=== PATIENT | female | born 1995 | race Caucasian/White ===

== ENCOUNTER 2017-07-10 00:20 | Emergency (ER) | payer SELFPAY ==
[~2017-07-10] VITALS: Ht 162.5 cm; Wt 120.2 kg
[2017-07-10] MEDS ORDERED: CYCLOBENZAPRINE5 M3 PO (01:24)
[2017-07-10] MEDS ORDERED: MEDROL DOSEPAK4 MG PO (01:24)
== END 2017-07-10 01:31 | disposition home or self-care (01) ==
LOC: ED 00:20
DX: M54.41 Lumbago with sciatica, right side (principal)

== ENCOUNTER → 2017-09-04 | Outpatient (CLI) | payer OTHER ==
[~2017-09-04] MED LIST: CYCLOBENZAPRINE5 M3 PO; MEDROL DOSEPAK4 MG PO
== END ==
LOC: US 15:50
DX: N93.9 Abnormal uterine and vaginal bleeding, unspecified (principal)